=== PATIENT | male | born 1990 | race Caucasian/White ===

== ENCOUNTER 2017-03-28 22:11 | Emergency (ER) | payer BC ==
[2017-03-28] MEDS ORDERED: Alum Hydrox/Mag Hydrox/Simeth 30 ML, Lidocaine 2% 15 ML PO ONE ×2 (22:37)
[2017-03-28] MEDS ORDERED: Ondansetron 4 MG Tab.DIS PO ONE (22:37)
--- NOTE | 2017-03-28 23:15 | EDM.PDOC ---
ED HPI GENERAL MEDICAL PROBLEM - General Chief Complaint: General Stated Complaint: chest pain Time Seen by Provider: 03/28/17 22:24 Source of Information: Reports: Patient, RN Notes Reviewed - History of Present Illness INITIAL COMMENTS - FREE TEXT/NARRATIVE: 26-year-old male comes in with anterior chest discomfort. This started at rest about 3 hours ago. He states this was a fairly severe sharp achy discomfort of the lower mid anterior chest without radiation. Did have some slight nausea with that. He states he has had poor appetite all day today has not really eaten much since breakfast way back this past morning. No after arrival to the ED the pain is almost gone. Been feeling some increased discomfort with deep breathing but that is now gone as well. No abdominal pain or cramping. No vomiting or diarrhea. He did just start back on a new medication, Vyvanse today. He is not been coughing. No fever chills or sore throat. epigastric Pain Score (Numeric/FACES): 3 - Related Data Allergies Allergy/AdvReac Type Severity Reaction Status Date / Time No Known Allergies Allergy Verified 03/28/17 22:21 Home Meds: Home Meds ALPRAZolam [Xanax] 0 mg PO QID PRN 03/28/17 [History] DULoxetine [Cymbalta] 40 mg PO DAILY 03/28/17 [History] Lisdexamfetamine [Vyvanse] 70 mg PO DAILY 03/28/17 [History] Past Medical History - Past Health History Medical/Surgical History: Denies Medical/Surgical History Psychiatric History: Reports: ADHD, Anxiety Social & Family History - Family History Family Medical History: Noncontributory - Tobacco Use Smoking Status *Q: Never Smoker - Caffeine Use Caffeine Use: Reports: Coffee, Energy Drinks, Soda, Tea - Recreational Drug Use Recreational Drug Use: No ED ROS GENERAL - Review of Systems Review Of Systems: See Below Constitutional: Denies: Fever, Chills HEENT: Denies: Sinus Problem, Throat Pain Respiratory: Reports: Shortness of Breath, Pleuritic Chest Pain (Mild, gone). Denies: Wheezing (Mild, gone), Cough Cardiovascular: Reports: Chest Pain (Now better). Denies: Palpitations GI/Abdominal: Reports: Decreased Appetite (Today), Nausea (Mild). Denies: Abdominal Pain, Vomiting Musculoskeletal: Denies: Neck Pain, Shoulder Pain, Arm Pain, Back Pain, Leg Pain Skin: Reports: No Symptoms Neurological: Reports: No Symptoms ED EXAM, GENERAL - Physical Exam Exam: See Below General Appearance: Alert, No Apparent Distress Eye Exam: Bilateral Eye: PERRL Throat/Mouth: Normal Inspection, Normal Oropharynx Head: No: Facial Swelling Neck: Supple, Full Range of Motion Respiratory/Chest: No Respiratory Distress, Lungs Clear, Normal Breath Sounds, No Accessory Muscle Use. No: Rhonchi, Wheezing Cardiovascular: Regular Rate, Rhythm GI/Abdominal: Soft, Non-Tender Back Exam: Normal Inspection Extremities: Normal Inspection. No: Pedal Edema, Leg Pain Neurological: Alert, Oriented, No Motor/Sensory Deficits Psychiatric: Normal Affect, Normal Mood EKG INTERPRETATION EKG Date: 03/28/17 Rhythm: NSR [place]: Normal P-Wave: Present QRS: Normal ST-T: Normal Course - Vital Signs Last Recorded V/S: Last Vital Signs Temp 99.7 F 03/28/17 22:12 Pulse 99 03/28/17 22:12 Resp 18 03/28/17 22:12 BP 148/83 H 03/28/17 22:12 Pulse Ox 100 03/28/17 22:12 - Orders/Labs/Meds Orders: Active Orders 24 hr Category Date Time Status EKG 12 Lead [EKG Documentation Completion] [RC] STAT Care 03/28/17 22:20 Active Meds: Medications Discontinued Medications Generic Name Dose Route Start Last Admin Trade Name Freq PRN Reason Stop Dose Admin Al Hydroxide/Mg Hydroxide 30 0 ml 03/28/17 22:37 03/28/17 22:42 ml/ Lidocaine HCl 15 ml PO 03/28/17 22:38 45 ml ONETIME ONE Administration Ondansetron HCl 4 mg 03/28/17 22:37 03/28/17 22:42 Zofran Odt PO 03/28/17 22:38 4 mg ONETIME ONE Administration - Re-Assessments/Exams Free Text/Narrative Re-Assessment/Exam: 03/28/17 23:39 GI cocktail may have given him some mild relief. EKG completely normal. He has been in sinus rhythm with no ectopy. O2 sats are running 100%. I have provided reassurance that we are not finding abnormality from a cardiac or respiratory standpoint. Discharge instructions as documented. Departure - Departure Time of Disposition: 23:40 Disposition: Home, Self-Care 01 Condition: Fair Clinical Impression: Chest pain, atypical - Discharge Information Referrals: PCP,Not In Area [Primary Care Provider] - Forms: ED Department Discharge Additional Instructions: You may take Maalox or Mylanta if this feels like heartburn at any time, also consider Tylenol if the discomfort does become more severe or bothersome. Your heart and lungs are checking out really well this evening. Follow-up clinic as needed if symptoms not resolving over the next 1-2 days as expected. Return to ED as needed if symptoms worsening in any way. - My Orders Last 24 Hours: My Active Orders 03/28/17 22:20 EKG 12 Lead [EKG Documentation Completion] [RC] STAT - Assessment/Plan Last 24 Hours: My Active Orders 03/28/17 22:20 EKG 12 Lead [EKG Documentation Completion] [RC] STAT
== END 2017-03-29 00:04 | disposition home or self-care (01) ==
LOC: JD.ED 22:11
DX: R07.89 Other chest pain (principal); Z79.899 Other long term (current) drug therapy
CPT/HCPCS: 93005; 99285; A9270; 93010; 99283-25

== ENCOUNTER 2017-11-16 20:51 | Emergency (ER) | payer BC ==
--- NOTE | 2017-11-16 22:41 | EDM.PDOC ---
ED HPI GENERAL MEDICAL PROBLEM - General Chief Complaint: Lower Extremity Injury/Pain Stated Complaint: POSS STROKE Time Seen by Provider: 11/16/17 21:02 Source of Information: Reports: Patient History Limitations: Reports: No Limitations - History of Present Illness INITIAL COMMENTS - FREE TEXT/NARRATIVE: The patient presents with right foot restricted movement. The patient was playing with his dog and his dog got a little aggressive and his teeth scrapped his right leg. He dent kicked the dog in the neck. He was doing fine after that but about 15 minutes later he got short of breath. He went outside to get some air. He then got more winded and could not talk much. He got nauseated and vomited once. He also felt like passing out. He called a friend and he let him come into his apartment. He had some water and felt better. He got up to leave and his right leg where he kicked the dog would not work. He cannot dorsiflex his right foot. He can planter flex and move laterally both directions. He has no pain with it. He has no numbness. He has no fever, chills, cough, or chest pain. He has no shortness of breath now nor nausea. Onset: Sudden Duration: Minutes: Location: Reports: Upper Extremity, Right Improves with: Reports: None Worsens with: Reports: None Associated Symptoms: Reports: Nausea/Vomiting, Shortness of Breath. Denies: Confusion, Chest Pain, Cough, Fever/Chills, Headaches - Related Data Allergies Allergy/AdvReac Type Severity Reaction Status Date / Time No Known Allergies Allergy Verified 03/28/17 22:21 Home Meds: Home Meds ALPRAZolam [Xanax] 0.5 mg PO QID PRN 03/28/17 [History] Past Medical History - Past Health History Medical/Surgical History: Denies Medical/Surgical History Psychiatric History: Reports: ADD, ADHD, Anxiety - Past Surgical History HEENT Surgical History: Reports: Adenoidectomy, Tonsillectomy GI Surgical History: Reports: Colonoscopy Social & Family History - Family History Family Medical History: Noncontributory - Tobacco Use Smoking Status *Q: Never Smoker - Caffeine Use Caffeine Use: Reports: Coffee, Energy Drinks, Soda - Recreational Drug Use Recreational Drug Use: No Review of Systems - Review of Systems Review Of Systems: See Below Constitutional: Reports: No Symptoms Eyes: Reports: No Symptoms Ears: Reports: No Symptoms Nose: Reports: No Symptoms Mouth/Throat: Reports: No Symptoms Respiratory: Reports: Shortness of Breath. Denies: Cough Cardiovascular: Reports: Lightheadedness. Denies: Chest Pain GI/Abdominal: Reports: No Symptoms Genitourinary: Reports: No Symptoms Musculoskeletal: Reports: Other (He cannot dorsiflex his right foot) ED EXAM, GENERAL - Physical Exam Exam: See Below Exam Limited By: No Limitations General Appearance: Alert, No Apparent Distress Ears: Normal External Exam Nose: Normal Inspection Head: Atraumatic, Normocephalic Neck: Normal Inspection Respiratory/Chest: No Respiratory Distress, Lungs Clear, Normal Breath Sounds Cardiovascular: Regular Rate, Rhythm, No Edema, No Murmur GI/Abdominal: Soft, Non-Tender, No Organomegaly, No Mass Extremities: Other (The patient cannot dorsiflex his right foot. The tendons appear intact. His achiles tendon is intact. He can planter flex and move his foot laterally and medially. He has good sensation and pulses. He has some very mild tenderness the anterior part of his right ankle. Superficial abrasion to the proximal to mid anterior lower leg.) EKG INTERPRETATION EKG Date: 11/16/17 Time: 21:48 Rhythm: NSR Rate (Beats/Min): 76 [place]: Normal P-Wave: Present QRS: Normal ST-T: Normal QT: Normal Course - Vital Signs Last Recorded V/S: Last Vital Signs Temp 99.4 F 11/16/17 21:07 Pulse 81 11/16/17 21:07 Resp 20 11/16/17 21:07 BP 127/77 11/16/17 21:07 Pulse Ox 96 11/16/17 21:07 - Orders/Labs/Meds Orders: Active Orders 24 hr Category Date Time Status Cardiac Monitoring [RC] . DIRECTED Care 11/16/17 21:28 Active EKG Documentation Completion [RC] STAT Care 11/16/17 21:28 Active Ankle Min 3V Rt [CR] Stat Exams 11/16/17 21:29 Taken Chest 1V Frontal [CR] Stat Exams 11/16/17 21:29 Taken Labs: Laboratory Tests 11/16/17 11/16/17 Range/Units 21:55 21:55 WBC 12.52 H (4.23-9.07) K/mm3 RBC 4.98 (4.63-6.08) M/mm3 Hgb 15.1 (13.7-17.5) gm/L Hct 42.7 (40.1-51.0) % MCV 85.7 (79.0-92.2) fl MCH 30.3 (25.7-32.2) pg MCHC 35.4 (32.2-35.5) g/dl RDW Std Deviation 37.7 (35.1-43.9) fL Plt Count 245 (163-337) K/mm3 MPV 9.3 L (9.4-12.3) fl Neut % (Auto) 80.7 H (34.0-67.9) % Lymph % (Auto) 11.2 L (21.8-53.1) % [place] % (Auto) 7.0 (5.3-12.2) % Eos % (Auto) 0.7 L (0.8-7.0) Baso % (Auto) 0.2 (0.1-1.2) % Neut # (Auto) 10.11 H (1.78-5.38) K/mm3 Lymph # (Auto) 1.40 (1.32-3.57) K/mm3 [place] # (Auto) 0.88 H (0.30-0.82) K/mm3 Eos # (Auto) 0.09 (0.04-0.54) K/mm3 Baso # (Auto) 0.02 (0.01-0.08) K/mm3 Sodium 141 (136-145) mEq/L Potassium 3.7 (3.5-5.1) mEq/L Chloride 105 (98-107) mEq/L Carbon Dioxide 28 (21-32) mEq/L Anion Gap 11.7 (5-15) BUN 13 (7-18) mg/dL Creatinine 0.9 (0.7-1.3) mg/dL Est Cr Clr Drug Dosing 124.77 mL/min Estimated GFR (MDRD) > 60 (>60) mL/min BUN/Creatinine Ratio 14.4 (14-18) Glucose 103 (74-106) mg/dL Calcium 8.9 (8.5-10.1) mg/dL Total Bilirubin 0.3 (0.2-1.0) mg/dL AST 23 (15-37) U/L ALT 40 (16-63) U/L Alkaline Phosphatase 77 (46-116) U/L Troponin I 0.020 (0.00-0.056) ng/mL Total Protein 7.3 (6.4-8.2) g/dl Albumin 3.9 (3.4-5.0) g/dl Globulin 3.4 gm/dL Albumin/Globulin Ratio 1.2 (1-2) - Re-Assessments/Exams Free Text/Narrative Re-Assessment/Exam: 11/16/17 22:43 I ordered an EKG, labs, CXR and an x-ray of his ankle. 11/16/17 22:44 His EKG shows a NSR with no acute changes. His CXR looks good. His WBC was slightly elevated at 12.52. His CMP looks good. His troponin was negative. The x-ray of his ankle shows nothing acute. 11/16/17 22:54 I am not sure why he cannot dorsiflex his ankle. He has good sensation and pulse and it appears his tendons are intact. He may have just bruised it. I will have him take some motrin or aleve and ice it and follow up with PT. Departure - Departure Time of Disposition: 22:55 Disposition: Home, Self-Care 01 Condition: Good Clinical Impression: Absent dorsiflexion of right ankle - Discharge Information *PRESCRIPTION DRUG MONITORING PROGRAM REVIEWED*: No *COPY OF PRESCRIPTION DRUG MONITORING REPORT IN PATIENT ANIL: No Referrals: PCP,None [Primary Care Provider] - Anthony Damon PA-C [Physician Director [employer]] - 1 Week Forms: ED Department Discharge Additional Instructions: Ice your ankle for 15 minutes 3 times per day for 2 days. Take motrin or aleve for pain. Elevate your ankle above your heart when you get home. Follow up with physical therapy and Anthony Damon. Please return if you are worse. - My Orders Last 24 Hours: My Active Orders 11/16/17 21:28 Cardiac Monitoring [RC] . DIRECTED EKG Documentation Completion [RC] STAT 11/16/17 21:29 Ankle Min 3V Rt [CR] Stat Chest 1V Frontal [CR] Stat - Assessment/Plan Last 24 Hours: My Active Orders 11/16/17 21:28 Cardiac Monitoring [RC] . DIRECTED EKG Documentation Completion [RC] STAT 11/16/17 21:29 Ankle Min 3V Rt [CR] Stat Chest 1V Frontal [CR] Stat
--- NOTE | 2017-11-17 08:35 | CR ---
Chest: Frontal view of the chest was obtained. Comparison: No prior chest x-ray. Heart size and mediastinum are normal. Lungs are clear. Bony structures are grossly intact. Impression: 1. Nothing acute is seen on frontal chest x-ray. Diagnostic code #1
--- NOTE | 2017-11-17 08:35 | CR ---
Right ankle: Four views of the right ankle were obtained. Comparison: No prior ankle exam. Ankle mortise is symmetric. No fracture, dislocation or other bony abnormality is seen. Impression: 1. No abnormality is identified on right ankle exam. Diagnostic code #1
== END 2017-11-16 23:05 | disposition home or self-care (01) ==
LOC: JD.ED 20:51
DX: S80.811A Abrasion, right lower leg, initial encounter (principal); M21.371 Foot drop, right foot; W54.0XXA Bitten by dog, initial encounter
CPT/HCPCS: 36415; 71045; 71045-26; 73610-26-RT; 73610-RT; 80053; 84484; 85025; 93005; 99283; 99284-25